=== PATIENT | male | born 1955 ===

== ENCOUNTER 2024-03-09 09:12 | Day surgery (SDC) | payer OTHER ==
[2024-03-02 09:19] LABS: HEMOGLOBIN 14.4 g/dL (13-16.00); MEAN CELL VOLUME 100.7 fL (80.0-100.00); MEAN CORPUSCULAR HEMOGLOBIN 34.6 pg (27.00-32.0); MEAN CORPUSCULAR HGB CONC 34.3 g/dl (32.0-36.0); PLATELET COUNT 193 K/uL (150-450); RED BLOOD COUNT 4.17 M/uL (4.00-6.00); RED CELL DISTRIBUTION WIDTH 13.5 % (11.5-14.5)
[2024-03-02 09:22] LABS: URINE APPEARANCE Clear; URINE BILIRRUBIN Negative (NEGATIVE); URINE BLOOD Negative; URINE COLOR Yellow; URINE GLUCOSE Negative (NEGATIVE); URINE LEUKOCYTE Negative; URINE NITRATE Negative; URINE PROTEIN Negative (NEGATIVE)
[2024-03-02 09:24] LABS: URINE EPITHELIAL CELLS 2.9 uL (0.0-38.8); URINE RBC 11.2 uL (0.0-20.8); URINE WBC 1.8 uL (0.0-23.2)
[2024-03-02 10:00] LABS: CALCIUM 8.9 mg/dL (8.5-10.1); CREATININE SERUM 1.07 mg/dL (0.70-1.30); GFR 68.32; POTASSIUM 4.96 mEq/L (3.5-5.1)
[2024-03-02 10:16] LABS: INR 1.03; PARTIAL THROMBOPLASTIN TIME 26.9 SECONDS (22.0-34.0); PROTHROMBIN TIME 10.8 SECONDS (9.0-11.5)
[~2024-03-09 09:12] MED LIST: INSULINA
[2024-03-09] MEDS ORDERED: BUPIVACAINE HCL/MPF 0.5% 30ML VIAL ONE (11:00)
[2024-03-09] MEDS ORDERED: CEFAZOLIN SODIUM 1,000 MG VIAL ONE (11:00)
[2024-03-09] MEDS ORDERED: TYLENOL ARTHRI650 MG PO (11:13)
[2024-03-09] MEDS ORDERED: TRAMADOL HCL50 MG PO (11:13)
[2024-03-09] MEDS ORDERED: MIRALAX17 GM PO (11:13)
[2024-03-09] MEDS ORDERED: NEURONTIN300 MG PO (11:13)
== END 2024-03-09 15:55 | disposition home or self-care (01) ==
LOC: CIR.AMB 09:12
PROVIDERS: ATTEND Surgery
DX: K42.0 Umbilical hernia with obstruction, without gangrene (principal); Z88.6 Allergy status to analgesic agent; E11.9 Type 2 diabetes mellitus without complications; I10 Essential (primary) hypertension; B20 Human immunodeficiency virus [HIV] disease
CPT/HCPCS: 49594; C1781